=== PATIENT | male | born 1955 | race Caucasian/White ===

== ENCOUNTER 2019-11-01 07:28 | Day surgery (SDC) | payer OTHER ==
[~2019-11-01 07:28] MED LIST: ASPI81CH PO; ATOR10 PO; CLOP75 PO; FAMO10; HYDACE5 PO; HYDR1TAB94 PO; IBUP800 PO; META800 PO; NITR.4SL SL; PANT40 PO; Prednisone20 MG PO; TAMS.4ER PO; ZEGRID PO; Zegerid 20 MG1 EACH PO
== END 2019-11-01 11:46 | disposition home or self-care (01) ==
PROVIDERS: Surgery
PROC: 0WUF0JZ Supplement Abdominal Wall with Synthetic Substitute, Open Approach (ICD-10-PCS; principal; 2019-11-01 09:00)
DX: K42.9 Umbilical hernia without obstruction or gangrene (principal); E78.5 Hyperlipidemia, unspecified; G47.33 Obstructive sleep apnea (adult) (pediatric); I25.10 Atherosclerotic heart disease of native coronary artery without angina pectoris; I25.2 Old myocardial infarction; Z79.899 Other long term (current) drug therapy; Z79.82 Long term (current) use of aspirin